=== PATIENT | male | born 1955 | race Caucasian/White ===

== ENCOUNTER 2025-07-14 12:42 | Outpatient (AMB) | payer OTHER, SELFPAY ==
--- NOTE | 2025-07-14 12:48 | MHC.OFFVIS ---
Vital Signs 07/14/25 12:51 Height 5 ft 7 in Weight 147 lb BMI 23.0 BP 135/61 Blood Pressure Location Lt brachial Position Sitting Pulse 59 Pulse Oximetry (%) 98 Oxygen Delivery Method Room Air Intake Visit Reasons: Gastroesophageal reflux disease (GERD) Intake Note: Patient new consult for GERD. Patient cc: acid reflux om]n and off and some discomfort on hsi throat. Production Line Mechanic Required: No Accompanied by: Self / Same As Patient Allergies Sulfa (Sulfonamide Antibiotics) Allergy (Mild, Verified 07/14/25 12:48) Unknown HPI Comments Details: 70 y.o M with PMH of GERD, asthma, hypothyroidism, OCD, ADHD who is here for GERD and dysphagia. Has intermittent dysphagia. Ongoing x years. Nonprogressive. Mainly in upper esophagus. He reports he also had a CT neck for this which demonstrated thickening in upper esophagus. Prev EGD 2017 - Schatzki's ring. Not dilated as procedure done without sedation. Last colo 2008 - no polyps. Pt was seen in [facility] but here for second opinion as he does not have a reliable transport and wonders if he can get this done here without sedation. [facility] Surgical History (Updated 07/14/25 @ 12:55 by Cecilia Dominguez) Hx of wisdom tooth extraction History of esophagogastroduodenoscopy (EGD) Hx of colonoscopy Hx of vein stripping Social History (Updated 07/14/25 @ 12:49 by Cecilia Dominguez) Household Members: Family Alcohol intake: never Patient Tobacco Use Status: Never used Tobacco Use of substances other than those prescribed or required for medical reasons: No Review of Systems Const All systems reviewed & are unremarkable except as noted in HPI and below Physical Exam Exam Exam: No apparent distress Nonicteric Abdomen soft, nondistended Alert and oriented x3, normal gait Vital Signs: Last Vital Signs Pulse 59 07/14/25 12:51 BP 135/61 07/14/25 12:51 Pulse Ox 98 07/14/25 12:51 Oxygen Delivery Method Room Air 07/14/25 12:51 BMI result Body Mass Index 23.0 Assessment & Plan Assessment & Plan (1) Dysphagia: Code(s): R13.10 - Dysphagia, unspecified Category: Medical (2) Schatzki ring of distal esophagus: Code(s): K22.2 - Esophageal obstruction Category: Medical (3) Colon cancer screening: Code(s): Z12.11 - Encounter for screening for malignant neoplasm of colon Category: Medical Plan Discussed wiht the pt that EGD with dilation will have to be rashad with anesthesia. Pt currently does not have anyone to accompany him for the procedure. Discussed that hospital can provide transport but he will still need someone to escort him to and from the procedure. Encouraged to reach out to SW or family preservation caseworker through his insurance provider or PCP to see if they can provide him with a bulk fluids handler for that day. He is also overdue for colo for CRC screening. This can be done at the same time as EGD. PEG prep was Rxed through [facility] office which the pt has at home. Instructions reviewed. Pt will call us when he has a ride arranged to [facility] EGD/[facility]. Office contact info provided. Coding Level of Care Code New Pt Level 4 (04930) Complex EM visit Add On G2211 Diagnoses Dysphagia R13.10 Schatzki ring of distal esophagus K22.2 Colon cancer screening Z12.11
[2025-07-14 12:51] VITALS: BP 135/61; PULSE 59; O2SAT 98; BMI 23.0
--- OUTSIDE RECORDS SUMMARY | 2025-07-14 16:05 | XMS_ITS | Clinical Summary ---
Author Organization [facility] Address [address] [place] [address] Care Team Providers Care Lead Oracle Developer Name Role Phone León Christopher MD Primary Care Provider [phone] Allergies Active Allergy Reactions Criticality Noted Date Comments Sulfa Antibiotics 09/27/2020 Medications Medication Sig Dispensed Refills Start Date End Date Status omeprazole (PriLOSEC) 20 MG capsule Take 20 mg by mouth daily. 0 Active CALCIUM MAGNESIUM 750 PO Take by mouth. 0 Active Social History Tobacco Use Types Packs/Day Years Used Date Smoking Tobacco: Never Assessed Sex and Gender Information Value Date Recorded Sex Assigned at Not on file Gender Identity Not on file Sexual Orientation Not on file Job Start Date Occupation Industry Not on file Not on file Not on file Last Filed Vital Signs Vital Sign Reading Time Taken Comments Blood Pressure - - Pulse - - Temperature - - Respiratory Rate - - Oxygen Saturation - - Inhaled Oxygen Concentration - - Weight 68 kg (150 lb) 09/27/2020 2:51 PM EST Height 170.2 cm (5' 7 ) 09/27/2020 2:51 PM EST Body Mass Index 23.49 09/27/2020 2:51 PM EST Plan of Treatment Health Maintenance Due Date Last Done Comments Hepatitis C Screening 1955 COVID-19 Vaccine (#1) 1955 Depression Screening 1967 Preventative Health Evaluation 1973 DTap / Tdap / Td (1 - Tdap) 1974 Colon Cancer Screening (Colonoscopy) 2000 Shingrix-Zoster Vaccine (1 of 2) 2005 Fall Risk Assessment 2020 Pneumococcal Vaccine (1 of 1 - PCV) 2020 Influenza Vaccine (#1) 2025 RSV Adult > 60+ Yrs or Pregn ant (1 - 1-dose 75+ series) 2030 Hepatitis B Vaccines Aged Out No long er eligible based on patient's age to complete this topic RSV Ped < 20 months Aged Out No longe r eligible based on patient's age to complete this topic Care Teams Lead Oracle Developer Relationship Specialty Start Date End Date León Christopher MD [address] [place] [id number] PCP - General Internal Medicine 09/27/20
--- OUTSIDE RECORDS SUMMARY | 2025-07-14 16:05 | XMS_ITS | Clinical Summary ---
Author Organization [facility] [address] [facility] [facility] Address [address] [place] [address] Phone Care Team Providers Care Software Reverse Engineer Name Role Phone León Christopher MD Primary Care Provider [phone] Encounters Date Type Department Care Team Description 05/28/2025 Telephone Gastroenterology - [facility] 299 [facility] [address] [place] [id number] John Han MD from Last 3 Months Surgical History Surgery Date Site/Laterality Comments VEIN SURGERY PROCEDURE:VEIN SURGERY Medical History Medical History Date Comments Anemia DX:Anemia Asthma DX:Asthma Social History Tobacco Use Types Packs/Day Years Used Date Smoking Tobacco: Never Assessed Sex and Gender Information Value Date Recorded Sex Assigned at Male 06/01/2025 1:15 PM EDT Legal Sex Male 10:14 PM EST Gender Identity Male 06/01/2025 1:15 PM EDT Sexual Orientation Not on file Obstetrics History Plan of Treatment Upcoming Encounters Date Type Department Care Team (Late st Contact Info) Description 10/07/2025 2:20 PM EST Consult Gastroenterology - [place] [address] [facility] [address] [place] [phone] Tiarra Louie PA 175 [facility] [address] [place] [address] Health Maintenance Due Date Last Done Comments Colorectal Cancer Screening: Colonoscopy 1955 DTaP,Tdap,and Td Vaccines (1 - Tdap) 1974 Pneumococcal Vaccine: 50+ Ye ars (1 of 1 - PCV) 2005 Zoster Vaccines (1 of 2) 2005 Abdominal Aortic Aneurysm (A AA) Screen 09/01/2022 Cholesterol Screening (Lipid Panel) 09/01/2022 Falls Risk Assessment 09/01/2022 Hepatitis C Screening 09/01/2022 Social Influencers of Health Screening 09/01/2022 Depression Screening 09/30/2024 COVID-19 Vaccine (1 - 2023-2 5 season) 2025 Influenza Vaccine (#1) 2025 RSV Immunization Adult Patie nts (1 - 1-dose 75+ series) 2030 HIB Vaccines Aged Out No longer eligi ble based on patient's age to complete this topic HPV Vaccines Aged Out No longer eligi ble based on patient's age to complete this topic Hepatitis A Vaccines Aged Out No long er eligible based on patient's age to complete this topic Hepatitis B Vaccines Aged Out No long er eligible based on patient's age to complete this topic IPV Vaccines Aged Out No longer eligi ble based on patient's age to complete this topic MMR Vaccines Aged Out No longer eligi ble based on patient's age to complete this topic Meningococcal ACWY Vaccine Aged Out N o longer eligible based on patient's age to complete this topic Meningococcal B Vaccine Aged Out No l onger eligible based on patient's age to complete this topic RSV Immunization Patients Un villa 20 months Aged Out No longer eligible b ased on patient's age to complete this topic Varicella Vaccines Aged Out No longer eligible based on patient's age to complete this topic Insurance [facility] [place] [id number] Care Teams Software Reverse Engineer Relationship Specialty Start Date End Date León Christopher MD [address] [place] [id number] PCP - General Internal Medicine 09/27/20
--- OUTSIDE RECORDS SUMMARY | 2025-07-14 16:05 | XMS_ITS | Patient Health Record ---
Author Organization [facility] Address [address] [address] Care Team Providers Care Clinical Nursing Intern Name Role Phone León Christopher Primary Care Provider SUKHJINDER Luu Unavailable [phone] Allergies Allergen (clinical drug ingredient) Drug/Non Drug Allergy documented on EMR Reaction Allergy Type Onset Date Status Substance with sulfonamide structure and antibacterial mechanism of action (substance) Sulfa Antibiotics Unknown Drug Allergy Active Reason For Referral No Information Medications Medication SIG (Take, Route, Frequency, Duration) Notes Start Date End Date Status Dakins (1/4 strength) 0.125 % 1 application Externally Once a day Active Ammonium Lactate 5 % 1 application Externally Twice a day Active Albuterol CFC free 90 mcg/inh Not-Taking Vitamin D3 25 MCG (1000 UT) 1 capsule Orally Once a day Active ProAir HFA 90mcg/inh Not-Takin g Omeprazole 20 MG 1 capsule 1/2 to 1 hour before morning meal Orally Once a day Active Multivitamin - 1 tablet Orally Once a day Active Levothyroxine Sodium 88 MCG 1 tablet in the morning on an empty stomach Orally Once a day Active Hydrocortisone 2.5 % 1 application Externally Once a day Active Fluticasone Furoate 50 MCG/ACT 1 puff Inhalation Once a day Not-Taking Flonase Allergy Relief 50 MCG/ACT 1 spray in each nostril Nasally Twice a day Active Vital Signs Height 5ft 5in in 11/03/2024 Weight 164.4 lbs 11/03/2024 BMI 27.35 kg/m2 11/03/2024 Encounters Encounter Location Date Provider Diagnosis [facility] [address] [phone] 11/03/2024 SUKHJINDER REYES Partial tear of righ t Achilles tendon, initial encounter S86.011A and Chronic venous insufficiency I87.2 [facility] [address] [place] [address] 10/30/2024 SUKHJINDER REYES [facility] [address] [place] [address] 11/03/2024 SUKHJINDER REYES [facility] [address] [place] [address] 12/08/2024 SUKHJINDER REYES [facility] [address] [place] [address] 12/29/2024 SUKHJINDER REYES Assessments Encounter Date Diagnosis (ICD Code) Assessment Notes Treatment Notes Treatment Clinical Notes Section Notes 11/03/2024 Partial tear of right Achilles tendon, initial encounter (ICD-10 - S86.011A) This is an outpatient visit for evaluation and management of a new patient, which required appropriate review of pertinent medical history, review of any previous imaging, review of all previous records, and examination and decision-making. Time was 50 minutes spent in review of all these facets including face to face discussion with the patient regarding my findings and in discussion of a current and future treatment plan. Three weightbearing radiographs of the right foot were taken in the office and reviewed. No acute bony pathology noted. Patient presents with pain around the midsubstance and insertion of the Right Achilles tendon causing difficulty with descending stairs. He also has significant venous insufficiency and lower extremity edema. On exam there feels to be a small deficit around the medial aspect of the tendon. This is suspicious for a possible Achilles tear. I can not rule out rupture as again the swelling makes it hard to palpate the tendon itself. I advised we get an MRI to better evaluate the tendon at this time. This has been ordered through [facility]. Will await the results. I discussed that he may need immobilization in a cast boot for up to 12 weeks depending of this is a tear. He is a high risk of skin complications for surgery, but need to avoid the oil heaterman complication of weakness and calcaneal gait as well. I provided him with written information about everything. He also wanted codes to check his insurance regarding the cast boot. This was given. I will await the results of the MRI of the right ankle. I encouraged him to call if he has any additional questions or concerns. 11/03/2024 Chronic venous insufficiency (ICD-10 - I87.2) Plan Of Treatment Pending Test Test Name Order Date MRI : Lower Ext Joint W/O Contrast 11/03 X ray : Foot, right 3v 11/03/2024 Insurance Providers Payer Name Payer Address Payer Phone Subscriber Number Group Number Insured Name Patient Relationship to Insured Coverage Start Date Coverage End Date [facility] [address] [facility] [place] [place] [address] [phone] [id number] Leader[employer]ron Self - patient is the insured Medical (General) History Medical History History ICD Code abnormal ejaculation ADHD, adult residual type anemia asthma - mild intermittant chronic venous hypertension depresison, major, single episode, 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
== END 2025-07-14 13:23 | disposition home or self-care (01) ==
PROVIDERS: PCP Internal Medicine; Visit Provider Internal Medicine
DX: R13.10 Dysphagia, unspecified (principal); K22.2 Esophageal obstruction
CPT/HCPCS: 99204; G2211